=== PATIENT | female | born 2000 | race Caucasian/White ===

== ENCOUNTER → 2022-01-05 | Outpatient (CLI) | payer MEDICAID ==
[~2022-01-05] MED LIST: IOHEXOL 240 MG/ML 50ML VIAL. PO ONE; IOHEXOL 300 MG/ML 75 ML VIAL. IV ONE; IOHEXOL 300 MG/ML 75 ML VIAL. ONE
--- NOTE | 2022-01-05 11:37 | RAD ---
Exam Date: 01/05/2022 10:[address] ABDOMEN+PELVIS W Indication: Reason: GALL BLADDER SURGERY 1 YEAR AGO, N/V/D / Spl. Instructions: OMNI 300 75ML, OMNI 2 40 50ML STARTED 9:30 / History: . TECHNIQUE: CT examination of the abdomen and pelvis was performed following the administration of or al and nonionic intravenous contrast. One or more of the following dose reduction techniques were ut ilized: *Automated exposure control (AEC) *Adjustment of mA and/or kV according to patient size *Use of iterative reconstruction technique *CT scan done according to ALARA, or ALARA/IMAGE GENTLY FINDINGS: The visualized lung bases are clear. Status post cholecystectomy. The liver, spleen, pancreas, adrenal glands and kidneys are normal. Urinary bladder is normal in appearance. There is no bowel obstruction or inflammation. The appendix is normal. No significant atherosclerotic calcifications are seen. No lymphadenopathy or ascites is seen. Osseous structures are intact. IMPRESSION: No evidence of acute intra-abdominal pathology. Electronically signed by: Cayetano Rucker MD (01/05/2022 11:35 AM) [id number]
== END ==
LOC: CT 09:12
PROVIDERS: ATTEND Nurse Practitioner Family
DX: R10.9 Unspecified abdominal pain (principal); R19.7 Diarrhea, unspecified; Z90.49 Acquired absence of other specified parts of digestive tract
CPT/HCPCS: 74177; Q9966; Q9967

== ENCOUNTER 2022-01-11 19:17 | Emergency (ER) | payer MEDICAID ==
[~2022-01-11] VITALS: Ht 157.5 cm; Wt 63.6 kg
--- NOTE | 2022-01-11 19:36 | PHYS DOC ---
General Adult EDM: Chief Complaint: SKIN RASH/ABSCESS HPI: HPI: Patient is a 21-year-old female who presents here with report of having a rash. She reports itching and redness of her chest and on her upper back. She denies occultly breathing, facial oral or throat swelling. Denies wheezing. She repor ts that she feels itchy and hot. She reports that she started taking Wellbutrin over 2 weeks ago. No other new topical or systemic exposures. No raised lesions, no open wounds. No rash located elsewhere. Symptoms began shortly prior to arrival. She did not take any medication prior to arrival. She has been rubbing the area on her chest. During my exam, I do note that the marcy spencer's redness is progressively resolving. Review of Systems: Review of Systems: Constitutional: Denies fever or chills Eyes: Denies change in visual acuity HENT: Denies nasal congestion or sore throat, denies oral or facial swelling, denies throat swelling, denies voice changes Respiratory: Denies cough or shortness of breath, denies wheezing or stridor Cardiovascular: Denies chest pain or edema GI: Denies abdominal pain, nausea, vomiting, or diarrhea Musculoskeletal: Denies back pain or joint pain Integument: Rash Neurologic: Denies headache, focal weakness or sensory changes Psychiatric: Anxiety Current Medications: Current Meds: Current Medications Medications (Trade) Dose Ordered Sig/Lulu Start Time Stop Time Status Last Admin Dose Admin Diphenhydramine HCl (Benadryl) 25 mg 1X ONCE 01/11/22 19:45 01/11/22 19:46 UNV Allergies: Allergies: Allergies Coded Allergies Type Severity Reaction Last Updated Verified No Known Drug Allergies 01/05/22 No Physical Exam: PE: Constitutional: Well developed, well nourished, no acute distress, non-toxic appearance. [] HENT: Normocephalic, atraumatic, oropharynx is patent and clear. Mucous members are moist. No oral or facial swelling or edema. External ears are normal bilaterally. Nares are patent and clear Eyes: Conjunctive are normal, no periorbital edema Neck: Normal range of motion, no tenderness, supple, no stridor. Trachea is midline. No meningismus. Cardiovascular:Heart rate regular rhythm, +2 radial pulses bilaterally. Lungs & Thorax: Lungs are clear to auscultation bilateral without rales, rhonchi or wheezes. No retractions. No tachypnea. No stridor. No evidence of respiratory distress. Skin: Warm, dry, there is very subtle erythema of the anterior neck and chest and upper back. There appears to be demarcated near the neckline. No rash noted elsewhere. No urticaria, no wheals, no open wounds, no papules, pustules, vesicles. No tenderness. The rash appears to be actively improving during discussion of care with the patient. Back: No tenderness, no CVA tenderness. [] Extremities: No tenderness, no cyanosis, no clubbing, ROM intact, no edema. [] Neurologic: Alert and oriented X 3, normal motor function, normal sensory function, no focal deficits noted. [] Psychologic: Anxious, cooperative EKG: EKG: [] Radiology/Procedures: Radiology/Procedures: [] Heart Score: C/O Chest Pain: No Risk Factors: Risk Factors: DM, Current or recent (<one month) smoker, HTN, HLP, family history of CAD, obesity. Risk Scores: Score 0 - 3: 2.5% MACE over next 6 weeks - Discharge Home Score 4 - 6: 20.3% MACE over next 6 weeks - Admit for Clinical Observation Score 7 - 10: 72.7% MACE over next 6 weeks - Early Invasive Strategies Course & Med Decision Making: Course & Med Decision Making The patient is well-appearing. She manifests no evidence of distress or anaphylaxis. Her rash is quite subtle. She is given a dose of oral Benadryl. I discussed home care instructions with her. No indication for systemic steroids, no negation for laboratory exams. I explained that it is possible that this is related to some environmental exposure, humidity or heat, and I do not strongly believe that this is related to Wellbutrin, this does not appear to be consistent with classic drug rash, nor even is it consistent with allergic reaction. Home care instructions are provided. Return precautions are given. I told her to contact her PCP for follow-up. She verbalizes understanding. Joel Disclaimer: Joel Disclaimer: This electronic medical record was generated, in whole or in part, using a voice recognition dictation system. Departure Departure: Impression: Primary Impression: Rash Disposition: HOME / SELF CARE / HOMELESS Condition: STABLE Referrals: LALITHA GANDHI MD (PCP) Patient Instructions: Rash Additional Instructions: Return for facial or throat swelling, wheezing, difficulty breathing, or other concerns. Your rash is mild and nonspecific and is not likely related to Wellbutrin. You may take over the counter Benadryl every 6-8 hours as needed for itching. Use ice packs to help with itching also. Follow up with your primary care doctor. CONY TREJO DO January 11, 2022 19:36
[2022-01-11] MEDS ORDERED: diphenhydrAMINE HCL 25 MG CAPSULE PO ONE (19:45)
[2022-01-11 20:02] VITALS: BP 115/65
== END 2022-01-11 20:04 | disposition home or self-care (01) ==
LOC: ER 19:17
DX: R21 Rash and other nonspecific skin eruption (principal); L29.9 Pruritus, unspecified
CPT/HCPCS: 99282; Q0163